=== PATIENT | female | born 1990 | race American Indian/Alaskan Native ===

== ENCOUNTER 2017-02-20 22:46 | Emergency (ER) | payer SELFPAY ==
[2017-02-20 22:58] VITALS: RESP 20
[2017-02-20] MEDS ORDERED: Sodium Chloride 0.9% 1,000 ML IV ONE (23:28)
[2017-02-20 23:55] LABS: HCG,QUALITATIVE URINE NEGATIVE (NEGATIVE)
[2017-02-20 23:59] LABS: SQUAMOUS EPITHIAL 4 /hpf (0-5); URINE BACTERIA OCC (<OCC); URINE BILIRUBIN NEGATIVE (NEGATIVE); URINE BLOOD 1+ (NEGATIVE); URINE CLARITY Hazy (Clear); URINE COLOR Yellow (YELLOW); URINE GLUCOSE (UA) NORMAL (Normal); URINE LEUKOCYTE ESTERASE 3+ Leu/uL (Negative); URINE NITRATE NEGATIVE (NEGATIVE); URINE PROTEIN NEGATIVE (NEGATIVE); URINE UROBILINOGEN NORMAL mg/dL (0.2-1.0)
[2017-02-21 00:07] LABS: BARBITURATES, UR NEGATIVE (NEGATIVE)
[2017-02-21 00:08] LABS: BENZODIAZEPINES, UR NEGATIVE (NEGATIVE)
[2017-02-21 00:10] LABS: OPIATES, UR NEGATIVE (NEGATIVE)
[2017-02-21 00:11] LABS: PHENCYCLIDINE, UR NEGATIVE (NEGATIVE)
[2017-02-21] MEDS ORDERED: Sodium Chloride 0.9% 1,000 ML ONE (00:20)
[2017-02-21] MEDS ORDERED: Morphine 4 MG/ML VIAL ONE (00:20)
[2017-02-21 00:21] LABS: BASO # 0.1 K/uL (0.0-0.2); BASO % 0.8 % (0.0-2.0); EOS # 0.9 K/uL (0.0-0.7); EOS % 6.5 % (0.0-4.0); HEMOGLOBIN 11.3 g/dL (11.0-16.0); LYMPH % 20.8 % (20.0-40.0); MEAN CELL VOLUME 80.2 fL (81.0-99.0); MEAN CORPUSCULAR HEMOGLOBIN 25.9 pg (27.0-31.0); MEAN CORPUSCULAR HGB CONC 32.3 g/dL (33.0-37.0); MEAN PLATELET VOLUME 8.9 fL (7.2-11.7); MONO # 0.5 K/uL (0.0-0.8); MONO % 3.5 % (0.0-10.0); NEUT # 9.9 K/uL (1.8-7.0); NEUT % 68.4 % (50.0-75.0); RBC 4.37 Mil/uL (3.80-5.20); RED CELL DISTRIBUTION WIDTH 14.8 % (11.5-14.5); WHITE BLOOD COUNT 14.5 K/uL (4.8-10.8)
[2017-02-21 00:29] LABS: ALBUMIN 3.7 g/dL (3.5-5.0); INR 1.1; PROTHROMBIN TIME 11.8 SECONDS (9.7-12.2)
[2017-02-21 00:32] LABS: ALB/GLOB RATIO 1.1 (1.0-2.1); ALT/SGPT 51 U/L (9-52); AST/SGOT 32 U/L (14-36); BLOOD UREA NITROGEN 11 mg/dL (7-17); GFR AFRICAN-AMERICAN > 60; GFR NON-AFRICAN AMERICAN > 60
[2017-02-21 00:33] LABS: CALCIUM 8.7 mg/dl (8.6-10.4); LIPASE 119 U/L (23-300)
[2017-02-21] MEDS ORDERED: Iodixanol 320 MG/ML 100 ML BOTTLE IV ONE (03:34)
--- NOTE | 2017-02-21 04:31 | C.PDOC ---
History Of Present Illness 26 y/o F with a Hx of cholecystitis, c/o crampy epigastric pain after dinner [employer]. Denies fever, chills, nausea, vomiting, diarrhea, chest pain, vaginal bleeding, discharge, or any other complaints. Time Seen by Provider: 02/20/17 23:16 Chief Complaint (Nursing): Abdominal Pain History Per: Patient History/Exam Limitations: no limitations Onset/Duration Of Symptoms: Hrs Current Symptoms Are (Timing): Still Present Severity: Mild Location Of Pain/Discomfort: Epigastric Quality Of Discomfort: "Pain" Associated Symptoms: denies: Fever, Chills, Nausea, Vomiting, Diarrhea Recent travel outside of the [place]: No Additional History Per: Patient Abnormal Vaginal Bleeding: No Past Medical History Reviewed: Historical Data, Nursing Documentation, Vital Signs Vital Signs: Last Vital Signs Temp 98.2 F 02/21/17 05:02 Pulse 80 02/21/17 05:02 Resp 20 02/21/17 05:02 BP 127/78 02/21/17 05:02 Pulse Ox 99 02/21/17 06:06 - Medical History PMH: Asthma Denies: Chronic Kidney Disease Surgical History: Cholecystectomy (may 01, 2016) - [facility] Procedures RESECTION OF GALLBLADDER, PERCUTANEOUS ENDOSCOPIC APPROACH (04/30/16) Family History: States: Unknown Family Hx - Social History Hx Tobacco Use: No Hx Alcohol Use: No Hx Substance Use: No - Immunization History Hx Tetanus Toxoid Vaccination: No Hx Influenza Vaccination: No Hx Pneumococcal Vaccination: No Review Of Systems Except As Marked, All Systems Reviewed And Found Negative. Constitutional: Negative for: Fever, Chills Cardiovascular: Negative for: Chest Pain Gastrointestinal: Positive for: Abdominal Pain (Epigastric). Negative for: Nausea, Vomiting, Diarrhea Genitourinary: Negative for: Vaginal Discharge, Vaginal Bleeding Physical Exam - Physical Exam Appears: Non-toxic, No Acute Distress, Other (Morbidly obese) Skin: Warm, Dry Head: Atraumatic, Normacephalic Eye(s): bilateral: Normal Inspection Cardiovascular: Rhythm Regular Respiratory: Normal Breath Sounds, No Accessory Muscle Use, No Rales, No Rhonchi , No Wheezing Gastrointestinal/Abdominal: Soft, Tenderness (Epigastric tenderness) Neurological/Psych: Oriented x3, Normal Speech, Normal Cognition ED Course And Treatment - Laboratory Results Result Diagrams: 02/21/17 00:15 02/21/17 00:15 Lab Interpretation: Abnormal (UA 29 WBC's) Urine POC: Negative O2 Sat by Pulse Oximetry: 99 (RA) Pulse Ox Interpretation: Normal - Other Rad CT ABd/pelvis X-Ray: Read By Radiologist (no acute findings.) Reevaluation Time: 04:30 Reassessment Condition: Improved Medical Decision Making Medical Decision Making: Impression: 26 y/o F with a Hx of cholecystitis, c/o crampy epigastric pain after dinner [employer]. moderate fecal retention c/w constipation. Disposition Doctor Will See Patient In The: Office Counseled Patient/Family Regarding: Studies Performed, Diagnosis - Disposition Referrals: Clay Guerra MD [Primary Care Provider] - Disposition: HOME/ ROUTINE Disposition Time: 04:30 Condition: GOOD Additional Instructions: drink a bottle of Mag Citrate (laxative) now and re-evaluate your abdominal discomfort after using the bathroom 2-3 times. Continue a daily stool softner to help prevent constipation dietary changes and exercise changes as discussed in your ED visit. Follow-up with your PMD as needed. Prescriptions: Magnesium Citrate [[facility] Magnesium Citrate] 300 ml PO ONCE PRN #1 bottle PRN Reason: Constipation Instructions: Constipation (ED) Forms: Work Excuse - Clinical Impression Clinical Impression: Abdominal pain, Constipation - Scribe Statement The provider has reviewed the documentation as recorded by the Scribirais hebert All medical record entries made by the Ayalaibirais were at my direction and personally dictated by me. I have reviewed the chart and agree that the record accurately reflects my personal performance of the history, physical exam, medical decision making, and the department course for this patient. I have also personally directed, reviewed, and agree with the discharge instructions and disposition.
[2017-02-21 05:03] VITALS: BP 127/78; PULSE 80; TEMP 98.2
[2017-02-21 06:06] VITALS: O2SAT 99
--- NOTE | 2017-02-21 10:58 | RAD ---
Abdomen four views History: Abdominal pain. Comparison: None available. Findings: Lung mccoy are clear. Heart size within normal limits. Surgical clips in the left upper abdomen. Moderate fecal retention in the colon. Relative paucity of small bowel gas. Degenerative changes in the spine and hips. Impression: Moderate fecal retention in the colon.
--- NOTE | 2017-02-21 11:02 | CT ---
PROCEDURE: CT Abdomen and Pelvis with contrast HISTORY: epigastric pain x 4 hrs COMPARISON: None. TECHNIQUE: Contrast dose: 100 mL Visipaque 320 Radiation dose: Total exam DLP = 1117.97 mGy-cm. This CT exam was performed using one or more of the following dose reduction techniques: Automated exposure control, adjustment of the mA and/or kV according to patient size, and/or use of iterative reconstruction technique. FINDINGS: LOWER THORAX: There is bibasilar subsegmental atelectasis. LIVER: There is mild hepatomegaly and diffuse low-attenuation in the liver. No intrahepatic biliary ductal dilatation. GALLBLADDER AND BILE DUCTS: Surgically absent. PANCREAS: The pancreas is normal in size and there is homogeneous enhancement without focal mass or ductal dilatation. SPLEEN: The spleen is normal in size without focal lesion. ADRENALS: Both adrenal glands are normal in size without discrete nodule. KIDNEYS AND URETERS: Both kidneys are normal in size and there is homogeneous enhancement without focal mass or hydronephrosis. VASCULATURE: No aortic aneurysm. BOWEL: There are fluid-filled small bowel loops in the right abdomen. There is no evidence of bowel dilatation or obstruction. The colon is unremarkable. APPENDIX: Normal appendix. PERITONEUM: No free fluid. No free air. LYMPH NODES: No enlarged lymph nodes. BLADDER: Unremarkable. REPRODUCTIVE: The uterus is normal in size. There is a 3.3 mm simple cyst in each ovary which demonstrates slightly higher attenuation than simple fluid. BONES: No acute fracture. OTHER FINDINGS: None. IMPRESSION: 1. 3.3 cm simple cyst in each ovary which demonstrates slightly higher attenuation than normal fluid and could represent a complicated or hemorrhagic cyst. A dedicated pelvic ultrasound would be helpful for further characterization. 2. Mild hepatomegaly and hepatic steatosis. 3. Fluid-filled small bowel loops in the right abdomen could represent nonspecific enteritis. A preliminary report was provided by [email or web address].
== END 2017-02-21 05:03 | disposition home or self-care (01) ==
LOC: C.ER 22:46 → SUPCPDRO 22:46 → C.ER 02-21 05:03
DX: K59.00 Constipation, unspecified (principal); R10.13 Epigastric pain
CPT/HCPCS: 74022; 74177; 80053; 81001; 83690; 84703; 85025; 85610; 85730; 96361; 96374; 96375; 99284; G0480; J1885; J2270; J2405; J7040; Q9967

== ENCOUNTER 2017-05-03 09:50 | Emergency (ER) | payer BC ==
[2017-05-03 10:01] VITALS: TEMP 98.1
[2017-05-03] MEDS ORDERED: Naproxen 550 mg Tab PO STA (10:38)
[2017-05-03] MEDS ORDERED: Naproxen 550 mg Tab PO ONE (10:58)
--- NOTE | 2017-05-03 11:20 | C.PDOC ---
History Of Present Illness Pt c/o left foot pain. Denies injury. States that foot is only painful when she bears weight. Time Seen by Provider: 05/03/17 10:33 Chief Complaint (Nursing): Lower Extremity Problem/Injury History Per: Patient Onset/Duration Of Symptoms: Days (about 1-2 weeks) Current Symptoms Are (Timing): Still Present Severity: Moderate Additional History Per: Prior Records - Ankle/Foot Feet: 1 - pain Past Medical History Reviewed: Historical Data, Nursing Documentation, Vital Signs Vital Signs: Last Vital Signs Temp 98.1 F 05/03/17 09:55 Pulse 76 05/03/17 09:55 Resp 18 05/03/17 09:55 BP 131/82 05/03/17 09:55 Pulse Ox 100 05/03/17 09:55 - Medical History PMH: Asthma, Gastritis Surgical History: Cholecystectomy (may 01, 2016) - [facility] Procedures RESECTION OF GALLBLADDER, PERCUTANEOUS ENDOSCOPIC APPROACH (04/30/16) Family History: States: Unknown Family Hx - Social History Hx Tobacco Use: No Hx Alcohol Use: No Hx Substance Use: No - Immunization History Hx Tetanus Toxoid Vaccination: No Hx Influenza Vaccination: No Hx Pneumococcal Vaccination: No Review Of Systems Except As Marked, All Systems Reviewed And Found Negative. Constitutional: Negative for: Fever Cardiovascular: Negative for: Chest Pain Respiratory: Negative for: Shortness of Breath Gastrointestinal: Negative for: Vomiting, Abdominal Pain Musculoskeletal: Positive for: Foot Pain (left). Negative for: Neck Pain, Back Pain, Leg Pain Skin: Negative for: Rash Neurological: Negative for: Weakness, Numbness Physical Exam - Physical Exam Appears: Non-toxic, No Acute Distress Skin: Normal Color, Warm, Dry, No Rash Head: Atraumatic, Normacephalic Eye(s): bilateral: Normal Inspection, PERRL, EOMI Neck: Normal ROM, Supple Cardiovascular: Rhythm Regular Respiratory: Normal Breath Sounds, No Accessory Muscle Use Gastrointestinal/Abdominal: Soft, No Tenderness Extremity: Normal ROM, Tenderness (left dorsal forefoot), No Pedal Edema, No Calf Tenderness, Capillary Refill (wnl), No Deformity, No Swelling Extremity: Bilateral: Normal Color And Temperature Pulses: Left Dorsalis Pedis: Normal Neurological/Psych: Oriented x3, Normal Motor, Normal Sensation ED Course And Treatment O2 Sat by Pulse Oximetry: 100 Pulse Ox Interpretation: Normal - Other Rad Left foot x-rays X-Ray: Viewed By Me, Read By Radiologist Interpretation: No acute fx Reassessment Condition: Improved Disposition Counseled Patient/Family Regarding: Studies Performed, Diagnosis, Need For Followup, Rx Given - Disposition Referrals: Clay Guerra MD [Staff Provider] - Disposition: HOME/ ROUTINE Disposition Time: 11:21 Condition: IMPROVED Additional Instructions: Rest. Ice. Elevate. VALARIE wrap. Follow up with your doctor. Return to the ER if you develop redness, swelling, weakness, numbness, worsening of symptoms or if you have any other concerns. Prescriptions: Naproxen [Naprosyn] 1 tab PO BID PRN #20 tab PRN Reason: Pain Instructions: Foot Sprain (ED) Forms: [employer] (Ugandan) - Clinical Impression Clinical Impression: Left foot pain
[2017-05-03 11:25] VITALS: BP 125/83; PULSE 88; RESP 20; O2SAT 96
--- NOTE | 2017-05-03 15:33 | RAD ---
PROCEDURE: Left Foot Radiographs. HISTORY: Forefoot pain. r/o stress fx. COMPARISON: None. FINDINGS: BONES: Normal. No fracture. JOINTS: Normal. SOFT TISSUES: Normal. OTHER FINDINGS: None. IMPRESSION: Unremarkable left foot radiographs.
== END 2017-05-03 11:28 | disposition home or self-care (01) ==
LOC: C.ER 09:50
DX: M79.672 Pain in left foot (principal)

== ENCOUNTER 2017-06-16 18:29 | Emergency (ER) | payer BC ==
[2017-06-16 18:46] VITALS: BMI 39.5
[2017-06-16] MEDS ORDERED: Sodium Chloride 0.9% 1,000 ML ONE (19:59)
[2017-06-16] MEDS ORDERED: Iohexol 240 (50 ml) ONE (19:59)
[2017-06-16 20:05] LABS: BASO # 0.1 K/uL (0.0-0.2); BASO % 0.9 % (0.0-2.0); EOS # 0.9 K/uL (0.0-0.7); EOS % 6.5 % (0.0-4.0); HEMATOCRIT 36.8 % (34.0-47.0); LYMPH # 3.6 K/uL (1.0-4.3); LYMPH % 27.7 % (20.0-40.0); MEAN CELL VOLUME 80.2 fL (81.0-99.0); MEAN CORPUSCULAR HEMOGLOBIN 25.6 pg (27.0-31.0); MEAN CORPUSCULAR HGB CONC 31.9 g/dL (33.0-37.0); MEAN PLATELET VOLUME 8.6 fL (7.2-11.7); MONO # 0.7 K/uL (0.0-0.8); NRBC % 0.1 % (0.0-2.0); WHITE BLOOD COUNT 13.1 K/uL (4.8-10.8)
[2017-06-16] MEDS: Sodium Chloride 0.9% 1,000 ML IV ONE (20:06)
[2017-06-16 20:20] LABS: CHLORIDE 102 mmol/L (98-107); RBC URINE 5 /hpf (0-3); SODIUM 137 mmol/L (132-148); URINE BACTERIA RARE (<OCC); URINE BILIRUBIN NEGATIVE (NEGATIVE); URINE COLOR Yellow (YELLOW); URINE GLUCOSE (UA) NORMAL (Normal); URINE KETONE NEGATIVE (NEGATIVE); URINE LEUKOCYTE ESTERASE NEG Leu/uL (Negative); URINE PROTEIN NEGATIVE (NEGATIVE); URINE UROBILINOGEN NORMAL mg/dL (0.2-1.0); WBC URINE 2 /hpf (0-5)
[2017-06-16 20:21] LABS: POTASSIUM 3.7 mmol/L (3.6-5.2); URINE BLOOD 1+ (NEGATIVE)
[2017-06-16 20:23] LABS: ALB/GLOB RATIO 1.3 (1.0-2.1); ALKALINE PHOSPHATASE 92 U/L (38-126); ALT/SGPT 49 U/L (9-52); AST/SGOT 26 U/L (14-36); BILIRUBIN,TOTAL 0.5 mg/dL (0.2-1.3); BLOOD UREA NITROGEN 10 mg/dL (7-17); CALCIUM 8.9 mg/dl (8.6-10.4); CARBON DIOXIDE 26 mmol/L (22-30); GFR AFRICAN-AMERICAN > 60; GLUCOSE,RANDOM 88 mg/dL (65-105); TOTAL PROTEIN 7.1 g/dL (6.3-8.3)
[2017-06-16] MEDS: Iohexol 240 (50 ml) PO STA (20:30)
[2017-06-16] MEDS ORDERED: Iodixanol 320 MG/ML 100 ML BOTTLE IV ONE (20:36)
[2017-06-16 22:15] VITALS: RESP 18
--- NOTE | 2017-06-16 22:16 | CT ---
EXAM: CT Abdomen and Pelvis With Intravenous Contrast CLINICAL HISTORY: 26 years old, female; Pain; Abdominal pain; Localized; Lower; Prior surgery; Surgery date: 6+ months; Surgery type: Cholecystectomy; Additional info: Lower abdominal pain TECHNIQUE: Axial computed tomography images of the abdomen and pelvis with intravenous contrast. All CT scans at this facility use one or more dose reduction techniques, viz.: automated exposure control; ma/kV adjustment per patient size (including targeted exams where dose is matched to indication; i.e. head); or iterative reconstruction technique. Coronal and sagittal reformatted images were created and reviewed. CONTRAST: 100 mL of visipaque 320 administered intravenously. COMPARISON: No relevant prior studies available. FINDINGS: Lower thorax: No acute findings. ABDOMEN: Liver: Fatty infiltration. Gallbladder and bile ducts: Cholecystectomy. No ductal dilation. Pancreas: No ductal dilation. No mass. Spleen: No splenomegaly. Adrenals: No mass. Kidneys and ureters: No mass. No hydronephrosis. Stomach and bowel: No definite mural thickening. No obstruction. Appendix: Normal caliber. No inflammation. PELVIS: Bladder: Unremarkable. Reproductive: Small ovarian follicles. ABDOMEN and PELVIS: Intraperitoneal space: No significant fluid collection. No free air. Bones/joints: No acute fracture. Soft tissues: Mild soft tissue thickening along umbilicus. Vasculature: Few rounded calcifications within pelvis, likely phleboliths. No aneurysm. Lymph nodes: No pathologically enlarged lymph nodes. IMPRESSION: 1. No definite acute intraabdominal abnormality. 2. Incidental/non-acute findings are described above.
[2017-06-16 23:30] VITALS: BP 109/68; PULSE 73; TEMP 97.8; O2SAT 98
--- NOTE | 2017-06-17 00:43 | C.PDOC ---
History Of Present Illness 26 y/o female with PMHx of Gastritis presents to ED with complaints of abdominal pain since earlier today with associated x2 episodes of vomiting and mild nausea. Patient also complaints of subjective fever and denies change in diet, dysuria, hematuria, vaginal bleeding, vaginal discharge or any other complaints at this time. Chief Complaint (Nursing): Abdominal Pain History Per: Patient History/Exam Limitations: no limitations Onset/Duration Of Symptoms: Hrs Current Symptoms Are (Timing): Still Present Location Of Pain/Discomfort: Diffuse Past Medical History Reviewed: Historical Data, Nursing Documentation, Vital Signs Vital Signs: Last Vital Signs Temp 97.8 F 06/16/17 23:25 Pulse 73 06/16/17 23:25 Resp 18 06/16/17 23:25 BP 109/68 06/16/17 23:25 Pulse Ox 98 06/17/17 00:45 - Medical History PMH: Asthma, Gastritis Surgical History: Cholecystectomy (may 01, 2016) - [facility] Procedures RESECTION OF GALLBLADDER, PERCUTANEOUS ENDOSCOPIC APPROACH (04/30/16) Family History: States: No Known Family Hx - Social History Hx Tobacco Use: No Hx Alcohol Use: No Hx Substance Use: No - Immunization History Hx Tetanus Toxoid Vaccination: No Hx Influenza Vaccination: No Hx Pneumococcal Vaccination: No Review Of Systems Constitutional: Positive for: Fever. Negative for: Chills Gastrointestinal: Positive for: Nausea, Vomiting, Abdominal Pain. Negative for : Diarrhea Genitourinary: Negative for: Dysuria, Hematuria Musculoskeletal: Negative for: Back Pain Skin: Negative for: Rash Physical Exam - Physical Exam Appears: Non-toxic, No Acute Distress Skin: Normal Color, Warm, Dry, No Rash Head: Atraumatic, Normacephalic Oral Mucosa: Moist Neck: Normal ROM, Supple Chest: Symmetrical Cardiovascular: Rhythm Regular Respiratory: Normal Breath Sounds, No Rales, No Rhonchi, No Wheezing Gastrointestinal/Abdominal: Soft, Tenderness (Epigastric and mid abdominal), No Guarding, No Rebound Back: No CVA Tenderness Extremity: Normal ROM Neurological/Psych: Oriented x3 ED Course And Treatment - Laboratory Results Result Diagrams: 06/16/17 20:02 06/16/17 20:02 O2 Sat by Pulse Oximetry: 98 (RA) Pulse Ox Interpretation: Normal Medical Decision Making Medical Decision Making: On re-eval patient feeling better and discharge and instructed to follow up with PMD Disposition - Disposition Referrals: [facility], [Non-Staff] - Disposition: HOME/ ROUTINE Disposition Time: 22:25 Condition: IMPROVED Additional Instructions: Thank you for letting us take care of you today. Your provider was Dr. Knox. You were treated for gastrits. The emergency medical care you received today was directed at your acute symptoms. If you were prescribed any medication, please fill it and take as directed. It may take several days for your symptoms to resolve. Return to the Emergency Department if your symptoms worsen, do not improve, or if you have any other problems. Please contact your doctor or call one of the physicians/clinics you have been referred to that are listed on the Patient Visit Information form that is included in your discharge packet. Bring any paperwork you were given at discharge with you along with any medications you are taking to your follow up visit. Our treatment cannot replace ongoing medical care by a primary care provider (PCP) outside of the emergency department. Thank you for allowing the [facility] team to be part of your care today. Follow up with your doctor in 2-3 days for re-evaluation and further management. Prescriptions: Ranitidine HCl [Zantac] 150 mg PO BID #20 tablet Instructions: Gastritis (ED) Forms: Work Excuse - Clinical Impression Clinical Impression: Gastritis - Scribe Statement The provider has reviewed the documentation as recorded by the Ayalaibirais Cardenas All medical record entries made by the Ayalaibirais were at my direction and personally dictated by me. I have reviewed the chart and agree that the record accurately reflects my personal performance of the history, physical exam, medical decision making, and the department course for this patient. I have also personally directed, reviewed, and agree with the discharge instructions and disposition.
== END 2017-06-16 23:30 | disposition home or self-care (01) ==
LOC: C.ER 18:29
DX: K29.70 Gastritis, unspecified, without bleeding (principal)
CPT/HCPCS: 74177; 80053; 81001; 83690; 85025; 87086; 96361; 96374; 96375; 99285; J2405; J7040; Q9966; Q9967

== ENCOUNTER 2017-07-31 08:54 | Emergency (ER) | payer BC ==
[2017-07-31 08:55] VITALS: BMI 39.5
[2017-07-31] MEDS ORDERED: Lactated Ringer's 1,000 ML IV STA (09:20)
[2017-07-31] MEDS ORDERED: Lactated Ringer's 1,000 ML ONE (09:33)
[2017-07-31 09:46] LABS: RBC URINE 3 /hpf (0-3); URINE BACTERIA RARE (<OCC); URINE BILIRUBIN NEGATIVE (NEGATIVE); URINE BLOOD 1+ (NEGATIVE); URINE COLOR Yellow (YELLOW); URINE GLUCOSE (UA) NORMAL (Normal); URINE KETONE NEGATIVE (NEGATIVE); URINE LEUKOCYTE ESTERASE NEG Leu/uL (Negative); URINE PROTEIN NEGATIVE (NEGATIVE); URINE UROBILINOGEN NORMAL mg/dL (0.2-1.0); WBC URINE 6 /hpf (0-5)
[2017-07-31 09:56] LABS: BASO % 0.3 % (0.0-2.0); EOS # 0.4 K/uL (0.0-0.7); EOS % 2.7 % (0.0-4.0); HEMATOCRIT 38.7 % (34.0-47.0); LYMPH # 0.9 K/uL (1.0-4.3); LYMPH % 5.5 % (20.0-40.0); MEAN CELL VOLUME 78.6 fL (81.0-99.0); MEAN CORPUSCULAR HEMOGLOBIN 26.1 pg (27.0-31.0); MEAN CORPUSCULAR HGB CONC 33.2 g/dL (33.0-37.0); MEAN PLATELET VOLUME 8.9 fL (7.2-11.7); MONO # 0.7 K/uL (0.0-0.8); MONO % 4.7 % (0.0-10.0); PLATELET COUNT 265 K/uL (130-400); RED CELL DISTRIBUTION WIDTH 15.2 % (11.5-14.5); WHITE BLOOD COUNT 15.6 K/uL (4.8-10.8)
--- NOTE | 2017-07-31 10:21 | C.PDOC ---
History Of Present Illness 26-year-old female, presents to the emergency department with complaints of a cough for the past few days. Patient reports epigastric abdominal pain and mild back pain since yesterday. Denies fever. Patient notes mild associated nausea and one episode of non-bloody/non-bilious vomiting this morning. Denies sick contacts, dysuria, hematuria, recent travel, or any other associated symptoms. No other complaints at this time. Chief Complaint (Nursing): Abdominal Pain History Per: Patient History/Exam Limitations: no limitations Onset/Duration Of Symptoms: Days Current Symptoms Are (Timing): Still Present Severity: Moderate Past Medical History Reviewed: Historical Data, Nursing Documentation, Vital Signs Vital Signs: Last Vital Signs Temp 98.4 F 07/31/17 13:31 Pulse 80 07/31/17 13:31 Resp 18 07/31/17 15:21 BP 129/87 07/31/17 13:31 Pulse Ox 97 07/31/17 13:31 - Medical History PMH: Asthma, Gastritis Denies: Chronic Kidney Disease Surgical History: Cholecystectomy (may 01, 2016) - [facility] Procedures RESECTION OF GALLBLADDER, PERCUTANEOUS ENDOSCOPIC APPROACH (04/30/16) Family History: States: No Known Family Hx - Social History Hx Tobacco Use: No Hx Alcohol Use: No Hx Substance Use: No - Immunization History Hx Tetanus Toxoid Vaccination: No Hx Influenza Vaccination: No Hx Pneumococcal Vaccination: No Review Of Systems Except As Marked, All Systems Reviewed And Found Negative. Constitutional: Negative for: Fever, Chills Cardiovascular: Negative for: Chest Pain Respiratory: Positive for: Cough. Negative for: Shortness of Breath Gastrointestinal: Positive for: Nausea, Vomiting, Abdominal Pain Genitourinary: Negative for: Dysuria, Vaginal Discharge, Vaginal Bleeding Musculoskeletal: Positive for: Back Pain Physical Exam - Physical Exam Appears: Non-toxic, No Acute Distress Skin: Warm, Dry, No Rash Head: Atraumatic, Normacephalic Eye(s): bilateral: Normal Inspection, PERRL Nose: Normal Oral Mucosa: Moist Lips: Normal Appearing Neck: Normal ROM Cardiovascular: Rhythm Regular, No Murmur Respiratory: Normal Breath Sounds, No Accessory Muscle Use Gastrointestinal/Abdominal: Soft, No Tenderness Back: Normal Inspection Extremity: Normal ROM Neurological/Psych: Oriented x3, Normal Speech ED Course And Treatment - Laboratory Results Result Diagrams: 07/31/17 09:52 07/31/17 09:52 ECG: Interpreted By Me, Viewed By Me ECG Rhythm: Sinus Rhythm ECG Interpretation: No Acute Changes Rate From EC - Radiology CXR: Interpreted by Me, Viewed By Me, Read By Radiologist CXR Interpretation: Yes: Other (No active disease.). No: No Acute Disease - CT Scan/US CT abdo/pelvis Other Rad Studies (CT/US): Interpreted By Me, Read By Radiologist, Radiology Report Reviewed CT/US Interpretation: IMPRESSION: Heterogeneous infiltrate at the left lung lower lobe suspicious for pneumonia. No evidence of acute pathology in the abdomen and pelvis. Medical Decision Making Medical Decision Making: Plan: * EKG * Labs * Chest X-Ray * Influenza AB * UA * Reassess and Disposition 15:08 - Spoke with Dr. Guerra, who is the patients PMD for a consult. Disposition - Disposition Referrals: Clay Guerra MD [Staff Provider] - Disposition: HOME/ ROUTINE Disposition Time: 14:00 Condition: IMPROVED Additional Instructions: Thank you for letting us take care of you today. The emergency medical care you received today was directed at your acute symptoms. If you were prescribed any medication, please fill it and take as directed. It may take several days for your symptoms to resolve. Return to the Emergency Department if your symptoms worsen, do not improve, or if you have any other problems. Please contact your doctor or call one of the physicians/clinics you have been referred to that are listed on the Patient Visit Information form that is included in your discharge packet. Bring any paperwork you were given at discharge with you along with any medications you are taking to your follow up visit. Our treatment cannot replace ongoing medical care by a primary care provider (PCP) outside of the emergency department. Thank you for allowing the [facility] team to be part of your care today. Follow up with your doctor in 1-2 days for re-evaluation and further management. Prescriptions: levoFLOXacin [Levaquin] 750 mg PO DAILY #5 tab Instructions: Community Acquired Pneumonia (ED) Forms: Work Excuse - Clinical Impression Clinical Impression: Community acquired pneumonia - Scribe Statement The provider has reviewed the documentation as recorded by the Scribe (Hector Ambrose) All medical record entries made by the Scribe were at my direction and personally dictated by me. I have reviewed the chart and agree that the record accurately reflects my personal performance of the history, physical exam, medical decision making, and the department course for this patient. I have also personally directed, reviewed, and agree with the discharge instructions and disposition.
[2017-07-31 10:29] LABS: EOSINOPHIL 5 % (0-4); NEUTROPHIL 75 % (50-75); TOTAL CELLS COUNTED 100
[2017-07-31] MEDS ORDERED: Lactated Ringer's 1,000 ML IV ONE (10:32)
[2017-07-31] MEDS ORDERED: Iohexol 240 (50 ml) PO ONE (10:33)
[2017-07-31 10:38] LABS: ALKALINE PHOSPHATASE 113 U/L (38-126); ALT/SGPT 80 U/L (9-52); AST/SGOT 48 U/L (14-36); BILIRUBIN,TOTAL 0.4 mg/dL (0.2-1.3); BLOOD UREA NITROGEN 9 mg/dL (7-17); CALCIUM 8.5 mg/dl (8.6-10.4); CARBON DIOXIDE 29 mmol/L (22-30); CHLORIDE 103 mmol/L (98-107); GFR AFRICAN-AMERICAN > 60; GLUCOSE,RANDOM 111 mg/dL (65-105); POTASSIUM 3.6 mmol/L (3.6-5.2); SODIUM 139 mmol/L (132-148); TOTAL PROTEIN 8.4 g/dL (6.3-8.3)
[2017-07-31 10:39] LABS: ALB/GLOB RATIO 0.9 (1.0-2.1)
[2017-07-31] MEDS ORDERED: Iodixanol 320 MG/ML 100 ML BOTTLE IV ONE (10:40)
[2017-07-31 10:52] LABS: VENOUS BLOOD GAS BASE EXCESS 3.7 mmol/L (0.0-2.0); VENOUS BLOOD GAS PCO2 49 mmHg (40-60); VENOUS BLOOD PH 7.39 (7.32-7.43)
[2017-07-31] MEDS ORDERED: Iohexol 240 (50 ml) ONE (11:04)
--- NOTE | 2017-07-31 11:14 | RAD ---
PROCEDURE: CHEST RADIOGRAPH, 1 VIEW HISTORY: cough r/o infiltrate COMPARISON: Comparison is made to 04/30/2016 FINDINGS: LUNGS: Clear. PLEURA: No pneumothorax or pleural fluid seen. CARDIOVASCULAR: Normal. OSSEOUS STRUCTURES: No significant abnormalities. VISUALIZED UPPER ABDOMEN: Normal. OTHER FINDINGS: None. IMPRESSION: No active disease.
[2017-07-31 13:32] VITALS: BP 129/87; PULSE 80; RESP 18; TEMP 98.4; O2SAT 97
--- NOTE | 2017-07-31 13:53 | CT ---
PROCEDURE: CT Abdomen and Pelvis with contrast HISTORY: abdominal pain COMPARISON: Comparison is made to 02/21/2017 and 06/16/2017 TECHNIQUE: Contrast dose: 100 mL Visipaque 320 Radiation dose: Total exam DLP = 1146.78 mGy-cm. This CT exam was performed using one or more of the following dose reduction techniques: Automated exposure control, adjustment of the mA and/or kV according to patient size, and/or use of iterative reconstruction technique. FINDINGS: LOWER THORAX: There is heterogeneous infiltrate at the left lower lobe suspicious for pneumonia. No evidence of significant pleural effusion. LIVER: Mild hepatic steatosis is again noted. The liver is mildly enlarged. GALLBLADDER AND BILE DUCTS: Status post cholecystectomy. No evidence of biliary tree obstruction. PANCREAS: Unremarkable. No gross lesion or ductal dilatation. SPLEEN: Unremarkable. ADRENALS: Unremarkable. No mass. KIDNEYS AND URETERS: Unremarkable. No hydronephrosis. No solid mass. VASCULATURE: Unremarkable. No aortic aneurysm. BOWEL: Unremarkable. No obstruction. No gross mural thickening. APPENDIX: No evidence of appendicitis. PERITONEUM: Unremarkable. No free fluid. No free air. LYMPH NODES: Unremarkable. No enlarged lymph nodes. BLADDER: Unremarkable. REPRODUCTIVE: Unremarkable. BONES: No acute fracture. OTHER FINDINGS: None. IMPRESSION: Heterogeneous infiltrate at the left lung lower lobe suspicious for pneumonia. No evidence of acute pathology in the abdomen and pelvis.
--- NOTE | 2017-08-01 19:21 | CARD ---
APPROVED REPORT EKG Measurement Heart [id number] [place] [id number] <Conclusion> Sinus tachycardia Otherwise normal ECG
== END 2017-07-31 15:21 | disposition home or self-care (01) ==
LOC: C.ER 08:54
DX: J18.9 Pneumonia, unspecified organism (principal)
CPT/HCPCS: 71010; 74177; 80053; 81001; 82803; 83690; 84703; 85025; 87040; 87086; 87804; 93005; 96361; 96374; 96375; 99285; J2405; J7120; Q9966; Q9967

== ENCOUNTER 2017-10-27 03:39 | Emergency (ER) | payer BC ==
[2017-10-27 03:40] VITALS: BMI 39.5
[2017-10-27 03:54] VITALS: RESP 20; O2SAT 98
[2017-10-27] MEDS ORDERED: Sodium Chloride 0.9% 1,000 ML IV ONE (04:01)
--- NOTE | 2017-10-27 04:01 | C.PDOC ---
History Of Present Illness Pt present, with sudden onset of cramping , stabbing periumbilical pain.while at work. No f/c/n/v. took an advil without relief Time Seen by Provider: 10/27/17 04:01 Chief Complaint (Nursing): Abdominal Pain History Per: Patient History/Exam Limitations: no limitations Onset/Duration Of Symptoms: Hrs Current Symptoms Are (Timing): Better Context: Other Severity: Moderate Pain Scale Rating Of: 4 Location Of Pain/Discomfort: Periumbilical Radiation Of Pain To:: None Quality Of Discomfort: Sharp, Stabbing Associated Symptoms: denies: Fever, Chills, Nausea, Vomiting Exacerbating Factors: None Alleviating Factors: None Last Bowel Movement: Yesterday Recent travel outside of the [place]: No Additional History Per: Patient Abnormal Vaginal Bleeding: No Past Medical History Reviewed: Historical Data, Nursing Documentation, Vital Signs Vital Signs: Last Vital Signs Temp 98.0 F 10/27/17 03:46 Pulse 105 H 10/27/17 03:46 Resp 20 10/27/17 03:46 BP 146/88 10/27/17 03:46 Pulse Ox 98 10/27/17 04:08 - Medical History PMH: Asthma, Gastritis Denies: Chronic Kidney Disease Surgical History: Cholecystectomy (may 01, 2016) - [facility] Procedures RESECTION OF GALLBLADDER, PERCUTANEOUS ENDOSCOPIC APPROACH (04/30/16) Family History: States: No Known Family Hx - Social History Hx Tobacco Use: No Hx Alcohol Use: No Hx Substance Use: No - Immunization History Hx Tetanus Toxoid Vaccination: No Hx Influenza Vaccination: No Hx Pneumococcal Vaccination: No Review Of Systems Constitutional: Negative for: Fever, Chills Cardiovascular: Negative for: Chest Pain Respiratory: Negative for: Shortness of Breath Gastrointestinal: Positive for: Abdominal Pain. Negative for: Nausea, Vomiting Genitourinary: Negative for: Dysuria Musculoskeletal: Negative for: Back Pain Skin: Negative for: Rash Neurological: Negative for: Weakness Psych: Negative for: Anxiety Physical Exam - Physical Exam Appears: Non-toxic Skin: Warm, Dry Oral Mucosa: Moist Neck: Supple Chest: Symmetrical Cardiovascular: Rhythm Regular Respiratory: No Rales, No Rhonchi, No Wheezing Gastrointestinal/Abdominal: Soft, Tenderness (periumbilical), No Distention, No Guarding, No Rebound, Other (morbidly obese) Back: No CVA Tenderness Extremity: Normal ROM Neurological/Psych: Oriented x3 Gait: Steady ED Course And Treatment - Laboratory Results Result Diagrams: 10/27/17 04:11 10/27/17 04:11 O2 Sat by Pulse Oximetry: 98 Pulse Ox Interpretation: Normal Reevaluation Time: 06:05 Reassessment Condition: Improved Disposition Counseled Patient/Family Regarding: Studies Performed, Diagnosis, Need For Followup - Disposition Referrals: Clay Guerra MD [Staff Provider] - Disposition: HOME/ ROUTINE Disposition Time: 04:01 Condition: FAIR Prescriptions: Ibuprofen [Motrin Tab] 800 mg PO TID #15 tab Instructions: Ovarian Cyst (DC) Forms: [facility] (Upper Sorbian), Work Excuse - Clinical Impression Clinical Impression: Abdominal pain, Hemorrhagic cyst of left ovary
[2017-10-27 04:15] LABS: MEAN PLATELET VOLUME 8.8 fL (7.2-11.7)
[2017-10-27] MEDS ORDERED: Sodium Chloride 0.9% 1,000 ML ONE (04:19)
[2017-10-27 04:20] LABS: BASO # 0.1 K/uL (0.0-0.2); BASO % 0.8 % (0.0-2.0); EOS # 1.2 K/uL (0.0-0.7); EOS % 8.2 % (0.0-4.0); LYMPH # 4.8 K/uL (1.0-4.3); LYMPH % 33.6 % (20.0-40.0); MEAN CORPUSCULAR HEMOGLOBIN 26.5 pg (27.0-31.0); MEAN CORPUSCULAR HGB CONC 33.6 g/dL (33.0-37.0); MONO # 0.6 K/uL (0.0-0.8); MONO % 4.1 % (0.0-10.0); NEUT # 7.6 K/uL (1.8-7.0); NEUT % 53.3 % (50.0-75.0); RBC 4.16 Mil/uL (3.80-5.20); RED CELL DISTRIBUTION WIDTH 14.3 % (11.5-14.5); WHITE BLOOD COUNT 14.2 K/uL (4.8-10.8)
[2017-10-27 04:26] LABS: ALB/GLOB RATIO 1.2 (1.0-2.1); ALBUMIN 4.1 g/dL (3.5-5.0); CALCIUM 8.5 mg/dl (8.6-10.4); GFR AFRICAN-AMERICAN > 60; GFR NON-AFRICAN AMERICAN > 60; LIPASE 176 U/L (23-300)
[2017-10-27 04:35] LABS: HCG,QUALITATIVE URINE NEGATIVE (NEGATIVE); INR 1.1; PROTHROMBIN TIME 11.8 SECONDS (9.7-12.2); URINE BACTERIA RARE (<OCC); URINE BILIRUBIN NEGATIVE (NEGATIVE); URINE CLARITY Hazy (Clear); URINE COLOR Yellow (YELLOW); URINE GLUCOSE (UA) NORMAL (Normal); URINE LEUKOCYTE ESTERASE NEG Leu/uL (Negative); URINE PROTEIN NEGATIVE (NEGATIVE); URINE UROBILINOGEN NORMAL mg/dL (0.2-1.0)
[2017-10-27 04:36] LABS: URINE BLOOD TRACE (NEGATIVE)
[2017-10-27 04:38] LABS: ALT/SGPT 74 U/L (9-52); AST/SGOT 35 U/L (14-36); BLOOD UREA NITROGEN 15 mg/dL (7-17)
[2017-10-27] MEDS ORDERED: Iodixanol 320 MG/ML 100 ML BOTTLE IV ONE (04:45)
--- NOTE | 2017-10-27 05:45 | CT ---
EXAM: CT Abdomen and Pelvis With Intravenous Contrast CLINICAL HISTORY: 26 years old, female; Pain; Abdominal pain; Prior surgery; Surgery type: Cholecystectomy; Patient HX: 07-31-17 images sent; Additional info: Periumbilical pain TECHNIQUE: Axial computed tomography images of the abdomen and pelvis with intravenous contrast. All CT scans at this facility use one or more dose reduction techniques, viz.: automated exposure control; ma/kV adjustment per patient size (including targeted exams where dose is matched to indication; i.e. head); or iterative reconstruction technique. 744 images are submitted. Coronal and sagittal reformatted images were created and reviewed. CONTRAST: 100 mL of administered intravenously. COMPARISON: CT - ABD PELVIS PO IV CONTRAST 2017-07-31 12:53 FINDINGS: Lower thorax: No acute findings. ABDOMEN: Liver: Fatty liver. Gallbladder and bile ducts: Cholecystectomy. Pancreas: Unremarkable. No mass. No ductal dilation. Spleen: Unremarkable. No splenomegaly. Adrenals: Unremarkable. No mass. Kidneys and ureters: Unremarkable. No solid mass. No hydronephrosis. Stomach and bowel: Diverticulosis. No obstruction. No mucosal thickening. Appendix: Normal appendix. PELVIS: Bladder: Partially decompressed bladder with bladder wall thickening. Correlation with urinalysis is recommended only if clinical cystitis is suspected. There is tiny calcification seen on image 153 series 3 which is unchanged from prior examination and likely represents a phlebolith. Reproductive: There is complex left ovarian hypodensity measuring 3.8 x 3.3 cm representing hemorrhagic ovarian cyst. Uterus is seen. ABDOMEN and PELVIS: Intraperitoneal space: Unremarkable. No free air. No significant fluid collection. Bones/joints: No acute fracture. No dislocation. Soft tissues: There is a fat-containing umbilical hernia. Nonspecific history of back edema. Vasculature: Pelvic phleboliths. No abdominal aortic aneurysm. Lymph nodes: Unremarkable. No enlarged lymph nodes. IMPRESSION: 1. There is complex left ovarian hypodensity measuring 3.8 x 3.3 cm representing hemorrhagic ovarian cyst.If clinically warranted, a pelvic ultrasound with Doppler interrogation may be helpful for further assessment.Correlation with gynecology clinical evaluation and further workup or followup as recommended by patient's clinical data.
[2017-10-27 06:23] VITALS: BP 140/80; PULSE 89; TEMP 98
== END 2017-10-27 06:22 | disposition home or self-care (01) ==
LOC: C.ER 03:39
DX: N83.202 Unspecified ovarian cyst, left side (principal); R10.9 Unspecified abdominal pain
CPT/HCPCS: 74177; 80053; 81001; 83690; 84703; 85025; 85610; 85730; 96361; 96374; 99283; J1885; J7040; Q9967

== ENCOUNTER 2017-10-29 08:19 | Emergency (ER) | payer BC ==
[2017-10-29 08:31] VITALS: BMI 41.4
[2017-10-29 08:50] VITALS: RESP 18
[2017-10-29] MEDS ORDERED: Oxycodone/Acetaminophen 5/325 mg Tab PO STA (09:06)
[2017-10-29 09:29] LABS: HCG,QUALITATIVE URINE NEGATIVE (NEGATIVE)
[2017-10-29 09:36] LABS: SQUAMOUS EPITHIAL 1 /hpf (0-5); URINE BILIRUBIN NEGATIVE (NEGATIVE); URINE BLOOD 3+ (NEGATIVE); URINE CLARITY Hazy (Clear); URINE COLOR Yellow (YELLOW); URINE GLUCOSE (UA) NORMAL (Normal); URINE LEUKOCYTE ESTERASE NEG Leu/uL (Negative); URINE PROTEIN 1+ mg/dL (NEGATIVE); URINE UROBILINOGEN NORMAL mg/dL (0.2-1.0)
[2017-10-29] MEDS ORDERED: Oxycodone/Acetaminophen 5/325 mg Tab ONE (09:56)
--- NOTE | 2017-10-29 10:57 | US ---
HISTORY: left sided pain COMPARISON: None available. TECHNIQUE: Real-time transabdominal pelvic ultrasound was performed. In addition a transvaginal pelvic ultrasound was necessary to better depict pelvic anatomy. FINDINGS: UTERUS: Measures 7.9 x 3.8 x 4.5 cm. ENDOMETRIUM: Measures 9 mm in diameter. CERVIX: Nabothian cyst. RIGHT OVARY: Measures 3.5 x 1.8 x 2.8 cm. Blood flow is demonstrated. LEFT OVARY: Measures 3.9 x 2.4 x 3.8 cm. Blood flow is demonstrated. 3.1 x 2.1 x 2.6 cm cyst which contains probable daughter cysts or septations. FREE FLUID: Small free fluid, cul-de-sac. OTHER FINDINGS: None. IMPRESSION: 3.1 x 2.1 x 2.6 cm complex left ovarian cyst which contains probable daughter cysts or septations. Recommend 6 week ultrasound follow-up. Small free fluid, cul-de-sac.
--- NOTE | 2017-10-29 11:30 | C.PDOC ---
History Of Present Illness Patient is a 26 y/o female, with a Hx of PCOS, who presents to the ED with a complaint of left sided-pelvic pain since this morning. Patient was evaluated by [facility] 2 days ago and was diagnosed with an ovarian cyst; patient reports pain resolved that day, but returned this morning, prompting visit. Patient took ibuprofen this morning with no relief. Notes menstrual cycle began yesterday; denies vaginal discharge, fever, nausea, vomiting, or back pain. Patient started on control Mana 2 months ago for heavy periods lasting for 3 weeks. Reports having an appointment with OBGYN on Tuesday. (Carisa Izaguirre) History Per: Patient History/Exam Limitations: no limitations Onset/Duration Of Symptoms: Days Current Symptoms Are (Timing): Still Present Associated Symptoms: denies: Fever, Nausea, Vomiting, Back Pain, Urinary Symptoms Recent travel outside of the [place]: No Time Seen by Provider: 10/29/17 08:48 Chief Complaint (Nursing): Female Genitourinary Past Medical History Reviewed: Historical Data, Nursing Documentation, Vital Signs - Medical History PMH: Asthma, Gastritis Denies: Chronic Kidney Disease Other PMH: PCOS Surgical History: Cholecystectomy (may 01, 2016) Family History: States: No Known Family Hx - Social History Hx Tobacco Use: No Hx Alcohol Use: No Hx Substance Use: No - Immunization History Hx Tetanus Toxoid Vaccination: No Hx Influenza Vaccination: No Hx Pneumococcal Vaccination: No Vital Signs: Last Vital Signs Temp 98.7 F 10/29/17 12:05 Pulse 91 H 10/29/17 12:05 Resp 18 10/29/17 12:05 BP 116/80 10/29/17 12:05 Pulse Ox 99 10/29/17 12:33 - [facility] Procedures RESECTION OF GALLBLADDER, PERCUTANEOUS ENDOSCOPIC APPROACH (04/30/16) Review Of Systems Constitutional: Negative for: Fever Gastrointestinal: Negative for: Nausea, Vomiting Genitourinary: Positive for: Pelvic Pain (left-sided). Negative for: Vaginal Discharge Musculoskeletal: Negative for: Back Pain Physical Exam - Physical Exam Appears: Well, Non-toxic, Other (uncomfortable) Skin: Normal Color, Warm, Dry, Other (hirsutism) Head: Atraumatic, Normacephalic Eye(s): bilateral: Normal Inspection, EOMI Nose: Normal Oral Mucosa: Moist Neck: Normal ROM, Supple Chest: Symmetrical Cardiovascular: Rhythm Regular Respiratory: Normal Breath Sounds, No Decreased Breath Sounds, No Rales, No Rhonchi, No Wheezing Gastrointestinal/Abdominal: Soft, Tenderness (left-sided pelvic tenderness), No Distention, No Guarding, Other (centrally obese) Back: No CVA Tenderness, No Vertebral Tenderness Neurological/Psych: Oriented x3, Normal Speech, Other (no focal deficits) ED Course And Treatment O2 Sat by Pulse Oximetry: 99 - CT Scan/US Transvaginal US Other Rad Studies (CT/US): Interpreted By Me, Read By Radiologist CT/US Interpretation: HISTORY: left sided pain. COMPARISON: None available. TECHNIQUE: Real-time transabdominal pelvic ultrasound was performed. In addition a transvaginal pelvic ultrasound was necessary to better depict pelvic anatomy. FINDINGS: UTERUS: Measures 7.9 x 3.8 x 4.5 cm. ENDOMETRIUM: Measures 9 mm in diameter. CERVIX: Nabothian cyst. RIGHT OVARY: Measures 3.5 x 1.8 x 2.8 cm. Blood flow is demonstrated. LEFT OVARY: Measures 3.9 x 2.4 x 3.8 cm. Blood flow is demonstrated. 3.1 x 2.1 x 2.6 cm cyst which contains probable daughter cysts or septations. FREE FLUID: Small free fluid, cul-de-sac. OTHER FINDINGS: None. IMPRESSION: 3.1 x 2.1 x 2.6 cm complex left ovarian cyst which contains probable daughter cysts or septations. Recommend 6 week ultrasound follow-up. Small free fluid, cul-de-sac. Progress Note: Toradol and Percocet administered. On re-eval, pain has resolved and patient feels comfortable going home. Patient tolerated PO. Patient advised to follow up with OBGYN as scheduled or return to ER if symtpoms persist or worsen. Disposition - Disposition Disposition Time: 11:28 - Disposition Disposition: HOME/ ROUTINE Condition: STABLE Additional Instructions: Follow up with your [facility] on Tuesday as scheduled. Return to ER if symptoms persist or worsen. Prescriptions: traMADol [Ultram] 50 mg PO Q8 #14 tab Instructions: Ovarian Cysts Forms: Work/School/Gym Excuse, [facility] (Estonian) - Clinical Impression Clinical Impression: Ovarian cyst - Scribe Statement The provider has reviewed the documentation as recorded by the Scribe - Scribe Statement Lisa Marion All medical record entries made by the Scribe were at my direction and personally dictated by me. I have reviewed the chart and agree that the record accurately reflects my personal performance of the history, physical exam, medical decision making, and the department course for this patient. I have also personally directed, reviewed, and agree with the discharge instructions and disposition. (Carisa Izaguirre)
[2017-10-29 12:10] VITALS: BP 116/80; PULSE 91; TEMP 98.7
[2017-10-29 12:34] VITALS: O2SAT 99
== END 2017-10-29 12:10 | disposition home or self-care (01) ==
LOC: C.ER 08:19
DX: N83.202 Unspecified ovarian cyst, left side (principal)
CPT/HCPCS: 76830; 76856; 81001; 84703; 96372; 99284; J1885

== ENCOUNTER 2018-01-05 04:01 | Emergency (ER) | payer BC ==
[2018-01-05 04:01] VITALS: BMI 41.4
[2018-01-05] MEDS ORDERED: Sodium Chloride 0.9% 1,000 ML IV ONE (05:23)
--- NOTE | 2018-01-05 05:29 | C.PDOC ---
History Of Present Illness The patient presents to the ED for evaluation of abdominal pain and nausea which began around 3 hours ago. Patient states she ate two slices of pizza from a food truck at around 1900 and then ate leftover dumplings. She denies fever, chills. Time Seen by Provider: 01/05/18 04:42 Chief Complaint (Nursing): Abdominal Pain History Per: Patient History/Exam Limitations: no limitations Onset/Duration Of Symptoms: Hrs (3) Current Symptoms Are (Timing): Still Present Severity: Mild Pain Scale Rating Of: 2 Location Of Pain/Discomfort: Epigastric Radiation Of Pain To:: None Quality Of Discomfort: "Pain" Associated Symptoms: Nausea. denies: Fever, Chills Exacerbating Factors: None Alleviating Factors: None Last Bowel Movement: Today Recent travel outside of the [place]: No Additional History Per: Patient Abnormal Vaginal Bleeding: No Past Medical History Reviewed: Historical Data, Nursing Documentation, Vital Signs Vital Signs: Last Vital Signs Temp 97.9 F 01/05/18 04:12 Pulse 90 01/05/18 04:12 Resp 16 01/05/18 04:12 BP 100/66 01/05/18 04:12 Pulse Ox 100 01/05/18 05:51 - Medical History PMH: Asthma, Gastritis Denies: Chronic Kidney Disease Surgical History: Cholecystectomy (may 01, 2016) - [facility] Procedures RESECTION OF GALLBLADDER, PERCUTANEOUS ENDOSCOPIC APPROACH (04/30/16) Family History: States: Unknown Family Hx - Social History Hx Tobacco Use: No Hx Alcohol Use: No Hx Substance Use: No - Immunization History Hx Tetanus Toxoid Vaccination: No Hx Influenza Vaccination: No Hx Pneumococcal Vaccination: No Review Of Systems Constitutional: Negative for: Fever, Chills Cardiovascular: Negative for: Chest Pain, Palpitations Respiratory: Negative for: Cough, Shortness of Breath Gastrointestinal: Positive for: Nausea, Abdominal Pain Genitourinary: Negative for: Dysuria, Hematuria Skin: Negative for: Rash, Lesions, Jaundice, Bruising Neurological: Negative for: Weakness, Numbness Physical Exam - Physical Exam Appears: Non-toxic, No Acute Distress Skin: Warm, Dry Head: Normacephalic Eye(s): bilateral: Normal Inspection Oral Mucosa: Moist Neck: Supple Chest: Symmetrical, No Deformity, No Tenderness Cardiovascular: Rhythm Regular, No Murmur Respiratory: No Rales, No Rhonchi, No Wheezing Gastrointestinal/Abdominal: Soft, Tenderness (mid-epigastric ), No Guarding, No Rebound Extremity: Normal ROM, Capillary Refill (less than 2 seconds ) Neurological/Psych: Oriented x3 ED Course And Treatment - Laboratory Results Result Diagrams: 01/05/18 05:39 18 05:39 O2 Sat by Pulse Oximetry: 100 (on RA) Pulse Ox Interpretation: Normal Progress Note: Bloodwork and urinalysis ordered and reviewed. Zofran IVP and IV Fluids administered. Reevaluation Time: 06:33 Reassessment Condition: Improved Disposition Counseled Patient/Family Regarding: Studies Performed, Diagnosis, Need For Followup, Rx Given - Disposition Referrals: Clay Guerra MD [Staff Provider] - Disposition: HOME/ ROUTINE Disposition Time: 05:29 Condition: FAIR Additional Instructions: Please return if symptoms recur Prescriptions: Ondansetron ODT [Zofran ODT] 1 odt PO BID PRN #6 odt PRN Reason: Nausea/Vomiting Instructions: Nausea and Vomiting, Adult (DC), Food Poisoning (DC) Forms: [facility] (Albanian), Work Excuse - Clinical Impression Clinical Impression: Nausea, Abdominal pain, Food poisoning - Scribe Statement The provider has reviewed the documentation as recorded by the Scribe (Magalys Ledezma) Provider Attestation: All medical record entries made by the Scribe were at my direction and personally dictated by me. I have reviewed the chart and agree that the record accurately reflects my personal performance of the history, physical exam, medical decision making, and the department course for this patient. I have also personally directed, reviewed, and agree with the discharge instructions and disposition.
[2018-01-05 05:32] LABS: HCG,QUALITATIVE URINE NEGATIVE (NEGATIVE)
[2018-01-05 05:37] LABS: SQUAMOUS EPITHIAL 3 /hpf (0-5); URINE BACTERIA OCC (<OCC); URINE BILIRUBIN NEGATIVE (NEGATIVE); URINE BLOOD NEGATIVE (NEGATIVE); URINE CLARITY Hazy (Clear); URINE COLOR Yellow (YELLOW); URINE GLUCOSE (UA) NORMAL (Normal); URINE HYALINE CAST 0-2 /lpf (0-2); URINE LEUKOCYTE ESTERASE TRACE Leu/uL (Negative); URINE PROTEIN NEGATIVE (NEGATIVE); URINE UROBILINOGEN NORMAL mg/dL (0.2-1.0)
[2018-01-05] MEDS ORDERED: Sodium Chloride 0.9% 1,000 ML ONE (05:40)
[2018-01-05 05:41] LABS: BASO # 0.1 K/uL (0.0-0.2); BASO % 0.9 % (0.0-2.0); EOS # 0.6 K/uL (0.0-0.7); EOS % 4.3 % (0.0-4.0); HEMOGLOBIN 11.8 g/dL (11.0-16.0); LYMPH # 2.4 K/uL (1.0-4.3); LYMPH % 16.6 % (20.0-40.0); MEAN CELL VOLUME 77.2 fL (81.0-99.0); MEAN CORPUSCULAR HEMOGLOBIN 25.7 pg (27.0-31.0); MEAN CORPUSCULAR HGB CONC 33.3 g/dL (33.0-37.0); MEAN PLATELET VOLUME 8.7 fL (7.2-11.7); MONO # 0.4 K/uL (0.0-0.8); MONO % 2.9 % (0.0-10.0); NEUT # 10.9 K/uL (1.8-7.0); NEUT % 75.3 % (50.0-75.0); RBC 4.61 Mil/uL (3.80-5.20); RED CELL DISTRIBUTION WIDTH 14.3 % (11.5-14.5); WHITE BLOOD COUNT 14.5 K/uL (4.8-10.8)
[2018-01-05 05:54] LABS: ALB/GLOB RATIO 1.1 (1.0-2.1); ALBUMIN 4.1 g/dL (3.5-5.0); ALT/SGPT 56 U/L (9-52); AST/SGOT 32 U/L (14-36); BLOOD UREA NITROGEN 10 mg/dL (7-17); CALCIUM 9.5 mg/dl (8.6-10.4); GFR AFRICAN-AMERICAN > 60; GFR NON-AFRICAN AMERICAN > 60; LIPASE 80 U/L (23-300)
[2018-01-05 06:54] VITALS: BP 111/69; PULSE 84; RESP 20; TEMP 97.6; O2SAT 98
== END 2018-01-05 06:54 | disposition home or self-care (01) ==
LOC: C.ER 04:01
DX: T62.91XA Toxic effect of unspecified noxious substance eaten as food, accidental (unintentional), initial encounter (principal); R11.2 Nausea with vomiting, unspecified
CPT/HCPCS: 80053; 81001; 83690; 84703; 85025; 96361; 96374; 96375; 99285; J1885; J2405; J7040

== ENCOUNTER 2018-11-24 03:35 | Emergency (ER) | payer SELFPAY ==
[2018-11-24 03:35] VITALS: BMI 41.9
[2018-11-24 03:53] VITALS: RESP 18
[2018-11-24] MEDS ORDERED: Alum-Mag Hydrox-Simethicone Susp (30 mL) PO STA (04:15)
[2018-11-24] MEDS ORDERED: Sodium Chloride 0.9% 1,000 ML IV STA (04:15)
--- NOTE | 2018-11-24 04:19 | C.PDOC ---
History Of Present Illness 28 y/o F c PMHx PCOS, cholecystectomy p/w abdominal pain x 7 hours. Pain is diffuse in the abdomen, dull, constant, associated with NBNB vomiting. Denies fever, chills, chest pain, dyspnea. States similar to previous "stomach bugs" in the past. Time Seen by Provider: 11/24/18 03:45 Chief Complaint (Nursing): Abdominal Pain Past Medical History Vital Signs: Last Vital Signs Temp 97.6 F 11/24/18 03:48 Pulse 112 H 11/24/18 03:48 Resp 18 11/24/18 03:48 BP 133/82 11/24/18 03:48 Pulse Ox 100 11/24/18 03:48 - Medical History PMH: Asthma, Gastritis Denies: Chronic Kidney Disease Surgical History: Cholecystectomy (may 01, 2016) - [facility] Procedures RESECTION OF GALLBLADDER, PERCUTANEOUS ENDOSCOPIC APPROACH (04/30/16) Family History: States: Unknown Family Hx - Social History Hx Tobacco Use: No Hx Alcohol Use: No Hx Substance Use: No - Immunization History Hx Tetanus Toxoid Vaccination: No Hx Influenza Vaccination: No Hx Pneumococcal Vaccination: No Review Of Systems Except As Marked, All Systems Reviewed And Found Negative. Constitutional: Negative for: Fever Cardiovascular: Negative for: Chest Pain Physical Exam - Physical Exam Additional Physical Exam Comments: Constitutional: No acute distress. Head: Normocephalic. Atraumatic. Eyes: PERRL. ENT: Moist mucous membranes. Neck: Supple. Cardiovascular: Regular rate. Radial pulse 2+ bilaterally. Chest: No tenderness. Respiratory: Clear to auscultation bilaterally. GI: Diffuse abdominal tenderness without rebound or guarding. Back: No CVA tenderness. Musculoskeletal: No tenderness or swelling of extremities. Skin: No rash. Neurologic: Alert, no focal deficit. ED Course And Treatment - Laboratory Results Result Diagrams: 11/24/18 04:36 11/24/18 04:36 O2 Sat by Pulse Oximetry: 100 Medical Decision Making Medical Decision Making: Discussed risks and benefits of CT. Patient agreeable to supportive care at home and return to ED for worsening or more focal abdominal pain, vomiting, or any other problem. Disposition - Disposition Referrals: [facility] [Outside] Disposition: HOME/ ROUTINE Disposition Time: 05:35 Condition: GOOD Prescriptions: levoFLOXacin [Levaquin] 1 tab PO DAILY #10 tab Metronidazole [Flagyl] 500 mg PO Q8 #30 tab Ondansetron ODT [Zofran ODT] 4 mg PO Q8 #12 odt Instructions: Nausea and Vomiting, Adult Forms: [facility] (Mongolian), Work Excuse - Clinical Impression Clinical Impression: Vomiting, Abdominal pain
[2018-11-24 04:39] LABS: BASO % 0.3 % (0.0-2.0); EOS # 0.6 K/uL (0.0-0.7); EOS % 4.9 % (0.0-4.0); HEMOGLOBIN 11.6 g/dL (11.0-16.0); LYMPH % 8.1 % (20.0-40.0); MEAN CELL VOLUME 79.1 fL (81.0-99.0); MEAN CORPUSCULAR HEMOGLOBIN 24.8 pg (27.0-31.0); MEAN CORPUSCULAR HGB CONC 31.4 g/dL (33.0-37.0); MEAN PLATELET VOLUME 8.8 fL (7.2-11.7); MONO # 0.5 K/uL (0.0-0.8); MONO % 4.4 % (0.0-10.0); NEUT # 9.8 K/uL (1.8-7.0); NEUT % 82.3 % (50.0-75.0); PLATELET COUNT 310 K/uL (130-400); RBC 4.68 Mil/uL (3.80-5.20); WHITE BLOOD COUNT 11.9 K/uL (4.8-10.8)
[2018-11-24] MEDS ORDERED: Alum-Mag Hydrox-Simethicone Susp (30 mL) ONE (04:39)
[2018-11-24 04:43] LABS: SQUAMOUS EPITHIAL < 1 /hpf (0-5); URINE BACTERIA OCC (<OCC); URINE BILIRUBIN NEGATIVE (NEGATIVE); URINE CLARITY Hazy (Clear); URINE COLOR Yellow (YELLOW); URINE GLUCOSE (UA) NORMAL (Normal); URINE LEUKOCYTE ESTERASE NEG Leu/uL (Negative); URINE PROTEIN NEGATIVE (NEGATIVE); URINE UROBILINOGEN NORMAL mg/dL (0.2-1.0)
[2018-11-24 04:46] LABS: HCG,QUALITATIVE URINE NEGATIVE (NEGATIVE)
[2018-11-24 04:47] LABS: URINE BLOOD TRACE (NEGATIVE)
[2018-11-24 04:51] LABS: ALB/GLOB RATIO 1.4 (1.0-2.1); ALBUMIN 4.1 g/dL (3.5-5.0); BLOOD UREA NITROGEN 12 mg/dL (7-17); CALCIUM 8.8 mg/dl (8.6-10.4); GFR NON-AFRICAN AMERICAN > 60; LIPASE 97 U/L (23-300)
[2018-11-24 05:10] LABS: ANISOCYTOSIS SLIGHT; BANDS 1 % (0-2); EOSINOPHIL 3 % (0-4); LYMPHOCYTE 6 % (20-40); MONOCYTE 4 % (0-10); NEUTROPHIL 84 % (50-75); PLATELET ESTIMATE NORMAL (NORMAL); REACTIVE LYMPHOCYTES 2 % (0-0); TOTAL CELLS COUNTED 100
[2018-11-24 05:13] LABS: ALT/SGPT 44 U/L (9-52); AST/SGOT 34 U/L (14-36)
[2018-11-24 05:49] VITALS: BP 116/70; PULSE 103; TEMP 99.8; O2SAT 97
== END 2018-11-24 05:57 | disposition home or self-care (01) ==
LOC: C.ER 03:35
DX: R11.10 Vomiting, unspecified (principal); R10.9 Unspecified abdominal pain; E28.2 Polycystic ovarian syndrome; Z90.49 Acquired absence of other specified parts of digestive tract
CPT/HCPCS: 80053; 81001; 83690; 84703; 85025; 87086; 96361; 96374; 96375; 99284; J2405; J7030